=== PATIENT | male | born 1990 | race Caucasian/White ===

== ENCOUNTER 2024-11-10 21:16 | Emergency (ER) | payer BC, MEDICAID ==
[~2024-11-10] VITALS: Ht 182.9 cm; Wt 100.0 kg
--- NOTE | 2024-11-10 22:03 | RADIOLOGY REPORT ---
CLINICAL INDICATION: FOOT PAIN TECHNIQUE: DI FOOT, COMPLETE (3VW MIN) Comparison: None FINDINGS: No osseous or joint abnormality identified with no fracture or dislocation. Joint spaces are normal. IMPRESSION: No abnormality demonstrated.
--- NOTE | 2024-11-10 22:04 | RADIOLOGY REPORT ---
CLINICAL INDICATION: ANKLE PAIN TECHNIQUE: DI ANKLE, COMPLETE(3VW MIN) Comparison: None FINDINGS: No osseous or joint abnormality identified with no fracture or dislocation. Ankle mortise appears unr emarkable. IMPRESSION: No abnormality demonstrated.
[2024-11-10] MEDS ORDERED: IBUP-1986 PO (22:14)
--- NOTE | 2024-11-10 22:14 | Physician Documentation ---
History of Present Illness ~ Chief Complaint: Foot pain Stated Complaint: FOOT PAIN Time Seen by MD: 21:36 HPI This is a 34-year-old male who presents with right foot and ankle pain after jumping down from a dresser approximately 12 hours prior to arrival, patient reports he is able to walk on the foot and bear weight though it is somewhat painful, patient reports that the pain is worse after being at rest for some time. Medication Reconciliation Allergies: Coded Allergies: No Known Allergies (Unverified , 09/23/13) Scheduled Ibuprofen (Ibuprofen), 1 TAB PO Q8H Past Medical History Past Medical History: No Pertinent History Alcohol Use: Occasionally Drug Use: none Review of Systems ROS Right foot and ankle pain as stated above in the HPI, otherwise all systems are reviewed and negative. Physical Exam Vital Signs: Temperature: 98.2, Heart Rate: 90, Respiratory Rate: 16, BP: 117/70, Pulse Oximetry: 97, Weight: 100.000 Oxygen Flow Rate: 0 Physical Exam VITALS: Reviewed and as above. GENERAL: Alert, nontoxic appearing, no apparent distress. RESPIRATORY: No increased work of breathing, no respiratory distress, speaking in full clear sentences MUSCULOSKELETAL: Tenderness to palpation to the lateral aspect of the right midfoot otherwise nontender, no edema, no ecchymosis, no erythema, pedal pulse intact, brisk capillary refill, sensation intact Progress Results/Orders Results/Orders Orders - ABAD GARNER Ortho Orders (11/10/24 ) Completed Orders - ABAD GARNER Ketorolac Trometh 15mg/Ml Vial (Toradol (11/10/24 22:10) Medications Received in ER Medications (Trade) Dose Ordered Sig/Jean Route PRN Reason Start Time Stop Time Status Last Admin Dose Admin (Toradol injection) 15 mg ONCE ONCE IM 11/10/24 22:10 11/10/24 22:11 DC 11/10/24 22:20 15 MG Vital Signs 11/10/24 11/10/24 11/10/24 11/10/24 21:31 22:20 22:51 22:53 Temp 98.2 98.1 Pulse 90 73 Resp 16 16 16 16 B/P (MAP) 117/70 116/70 Pulse Ox 97 99 O2 Flow Rate 0 EKG/XRAY/CT/US/VASC/MRI Bone/Soft Tissue X-Ray (Ext.) #1: Additional Comment CLINICAL INDICATION: ANKLE PAIN TECHNIQUE: DI ANKLE, COMPLETE(3VW MIN) Comparison: None FINDINGS: No osseous or joint abnormality identified with no fracture or dislocation. Ankle mortise appears unremarkable. IMPRESSION: No abnormality demonstrated. Electronically Signed by:BART LAWSON MD Date & Time: 11/10/242200 Dictated by: BART LAWSON MD Dictation date and time: 11/10/242200 I have reviewed and agree with the radiology report. I have reviewed and interpreted the imaging as: No fracture or dislocation Bone/Soft Tissue X-Ray (Ext.) #2: Additional Comment CLINICAL INDICATION: FOOT PAIN TECHNIQUE: DI FOOT, COMPLETE (3VW MIN) Comparison: None FINDINGS: No osseous or joint abnormality identified with no fracture or dislocation. Joint spaces are normal. IMPRESSION: No abnormality demonstrated. Electronically Signed by:BART LAWSON MD Date & Time: 11/10/242199 Dictated by: BART LAWSON MD Dictation date and time: 11/10/242199 I have reviewed and agree with the radiology report. I have reviewed and interpreted the imaging as: No fracture or dislocation Medical Decision Making Findings This 34-year-old male presented with right foot and ankle pain after jumping down from a dresser earlier in the day, it was reassuring patient was able to walk and bear weight on the injured foot, physical exam was benign without swel ling ecchymosis, or erythema to the right foot and the foot was neurovascularly intact to the injury. X-rays of foot and ankle obtained and did not demonstrate evidence of fracture or dislocation. Patient medicated for pain and placed on crutches to rest foot. With shared decision-making we will use rest, ice, compression, and elevation treatment strategy, home care instructions provided which patient verbalized understanding of. Patient provided return to care precautions which he verbalized understanding of. Patient is appropriate for outpatient follow up with primary care provider. Ankle Diff Dx:Considerations: Include: Abrasion, Arthritis, Contusion, DJD, Fracture-metatarsal, Fracture-fibula, Gout, Laceration, Neurovascular injury, Sprain, Septic Foot Diff Dx:Considerations: Include: Fracture-metatarsal, Fracture-phalynx Departure Time of Disposition: 22:14 Disposition: 01 HOME / SELF CARE / HOMELESS Impression: Primary Impression: Foot pain Qualified Codes: M79.671 - Pain in right foot Condition: Improved Discharge Instructions: Foot Pain, RICE Therapy for Routine Care of Injuries Additional Instructions: Please see the attached home care instructions for rest, ice, compression, and elevation. Use the crutches to help rest your foot. You may use either the prescribed high-dose ibuprofen or [id number] ibuprofen as needed for pain according to the prescribed or [id number] directions. You may also add Tylenol as needed for pain as directed by the ldxf-jhn-[id number] directions. Please follow up with your primary care provider in the next few days. Please return to the emergency department for any new or worsening concerning symptoms. Do not take ibuprofen for the next 12 hours as you received a Toradol injection. Take ibuprofen with food to decrease the chance of stomach upset. Referrals: NO PRIMARY CARE PROVIDER (PCP) Prescriptions Ibuprofen (Ibuprofen) 800 Mg Tablet 1 TAB PO Q8H for pain for 10 Days, #30 TAB 0 Refills Prov: ABAD GARNER 11/10/24 Education Educated: Patient Educated regarding: diagnosis, treatment, prognosis, need for follow up Signature Scribe Signature: No scribe Attestation: The note accurately reflects work and decisions made by me.JAQUI Calderon 11/11/24 03:28 ABAD GARNER November 10, 2024 22:14
[2024-11-10] MEDS: ketorolac trometh 15mg/ml vial 15 MG/ML ML IM ONE (22:20)
[2024-11-10 22:53] VITALS: BP 116/70; PULSE 73; RESP 16; TEMP 98.1; O2SAT 99
== END 2024-11-10 22:54 | disposition home or self-care (01) ==
LOC: ER 21:16
DX: M79.671 Pain in right foot (principal); M25.571 Pain in right ankle and joints of right foot; Z79.899 Other long term (current) drug therapy; Z72.89 Other problems related to lifestyle
CPT/HCPCS: 73610; 73630; 96372; 99284; J1885; A6449